=== PATIENT | female | born 1955 | race Asian ===

== ENCOUNTER → 2024-02-25 07:07 | Outpatient (REF) | payer OTHER, SELFPAY | LOC: RAD 07:07 | PROVIDERS: ATTENDING PHYSICIAN Internal Medicine Gastroenterology | DX: K59.04 Chronic idiopathic constipation (principal) | CPT/HCPCS: 74270 ==

== ENCOUNTER 2024-05-19 13:36 | Outpatient (RCR) | payer OTHER, SELFPAY | END 2024-05-19 23:59 | disposition home or self-care (01) | LOC: RPT 13:36 | PROVIDERS: ATTENDING PHYSICIAN Internal Medicine Gastroenterology | DX: K59.04 Chronic idiopathic constipation (principal); N81.89 Other female genital prolapse; R10.2 Pelvic and perineal pain; Z73.6 Limitation of activities due to disability; M62.81 Muscle weakness (generalized); R27.8 Other lack of coordination; M62.838 Other muscle spasm | CPT/HCPCS: 97014; 97112; 97140; 97163; 97530 ==

== ENCOUNTER 2024-06-01 13:45 | Outpatient (RCR) | payer OTHER, SELFPAY | END 2024-06-01 23:59 | disposition home or self-care (01) | LOC: RPT 13:45 | PROVIDERS: ATTENDING PHYSICIAN Internal Medicine Gastroenterology | DX: K59.04 Chronic idiopathic constipation (principal); N81.89 Other female genital prolapse; R10.2 Pelvic and perineal pain; Z73.6 Limitation of activities due to disability; M62.81 Muscle weakness (generalized); R27.8 Other lack of coordination; M62.838 Other muscle spasm | CPT/HCPCS: 97014; 97112; 97140; 97530 ==

== ENCOUNTER 2024-06-22 10:47 | Outpatient (RCR) | payer OTHER, SELFPAY | END 2024-06-22 12:47 | disposition home or self-care (01) | LOC: RPT 10:47 | PROVIDERS: ATTENDING PHYSICIAN Internal Medicine Gastroenterology | DX: K59.04 Chronic idiopathic constipation (principal); N81.89 Other female genital prolapse; R10.2 Pelvic and perineal pain; Z73.6 Limitation of activities due to disability; M62.81 Muscle weakness (generalized); R27.8 Other lack of coordination; M62.838 Other muscle spasm | CPT/HCPCS: 97530 ==

== ENCOUNTER → 2025-01-04 09:34 | Outpatient (REF) | payer OTHER, SELFPAY | LOC: RAD 09:34 | PROVIDERS: ATTENDING PHYSICIAN Surgery; FAMILY PHYSICIAN Family Medicine | DX: K59.09 Other constipation (principal) | CPT/HCPCS: 74019 ==

== ENCOUNTER → 2025-01-06 08:47 | Outpatient (REF) | payer OTHER, SELFPAY | LOC: RAD 08:47 | PROVIDERS: ATTENDING PHYSICIAN Surgery; FAMILY PHYSICIAN Family Medicine | DX: K59.00 Constipation, unspecified (principal) | CPT/HCPCS: 74019 ==

== ENCOUNTER 2025-02-20 06:19 | Day surgery (SDC) | payer OTHER, SELFPAY | END 2025-02-20 12:33 | disposition home or self-care (01) | LOC: GI 06:19 | PROVIDERS: ATTENDING PHYSICIAN Internal Medicine Gastroenterology | DX: Z12.11 Encounter for screening for malignant neoplasm of colon (principal); Z86.0100 Personal history of colon polyps, unspecified; K64.0 First degree hemorrhoids | CPT/HCPCS: G0105 ==

== ENCOUNTER 2025-04-18 05:56 | Day surgery (SDC) | payer OTHER, SELFPAY ==
[2025-04-04 08:56] LABS: Hematocrit 38.2 % (37.0-47.0); Hemoglobin 12.4 g/dL (12.0-16.0); Mean Corp Hgb Conc. 32.5 g/dL (33.0-37.0); Mean Corpuscular Volume 66.4 fL (81.0-99.0); Platelet Count 183 10^3/uL (130-400); Red Cell Dist. Width 15.7 % (11.5-14.5)
[2025-04-04 09:21] LABS: Blood Urea Nitrogen 12 mg/dl (7-17); Calcium 9.1 mg/dl (8.4-10.2); Carbon Dioxide 26 mmol/L (22-30); Chloride 108 mmol/L (98-107); Glucose 88 mg/dl (70-99); Potassium 4.9 mmol/L (3.5-5.1); Sodium 140 mmol/L (135-145); eGFR > 60.00
--- NOTE | 2025-04-04 12:48 | PTCARENOTE ---
Abnormal ECG on 04/04/25, Dr. Banks notified, requested preop cardiac clearance. Jaki Baca (urology office) notified.
[2025-04-04 13:55] VITALS: BMI 22.6
[2025-04-18] VITALS (38 sets, daily range): BP systolic 82–140; BP diastolic 38–70; BMI 22.6
[2025-04-18] MEDS: NORMOSOL-R/PLASMALYTE-A 1000 IV ×2 (06:34→15:30)
[2025-04-18 11:43] LABS: Hematocrit 33.1 % (37.0-47.0); Hemoglobin 10.9 g/dL (12.0-16.0); Mean Corp Hgb Conc. 32.9 g/dL (33.0-37.0); Mean Corpuscular Volume 66.1 fL (81.0-99.0); Platelet Count 159 10^3/uL (130-400); Red Cell Dist. Width 15.0 % (11.5-14.5)
[2025-04-18] MEDS: NEO-SYNEPHRINE 250 IV (11:49)
[2025-04-18] MEDS: DILAUDID 0.25 MG IV (12:00)
[2025-04-18 15:37] LABS: Hematocrit 32.1 % (37.0-47.0); Hemoglobin 10.6 g/dL (12.0-16.0); Mean Corp Hgb Conc. 33.0 g/dL (33.0-37.0); Mean Corpuscular Volume 65.6 fL (81.0-99.0); Platelet Count 167 10^3/uL (130-400); Red Cell Dist. Width 15.5 % (11.5-14.5)
[2025-04-18] MEDS: TORADOL 15 MG IV ×2 (16:37→22:01)
[2025-04-18] MEDS: NORMOSOL-R/PLASMALYTE-A IV (16:38)
--- NOTE | 2025-04-18 16:59 | PTCARENOTE ---
Transfer of patient care, received patient in good spirits, comfortable at present. See nursing assessment, vss, IV fluids per md order, Abdominal incisional sites C, D, and intact, no drainage. Sawyer cath with qs concentrated yellow urine.
Instructed pt to order a light dinner. Callbell within reach, bed in low position and siderails up x4.
[2025-04-18] MEDS: COLACE 100 MG PO (20:03)
[2025-04-18] MEDS: MYLICON 80 MG PO (21:11)
[2025-04-18] MEDS: NSS 250 IV (23:43)
--- NOTE | 2025-04-19 00:09 | W.PN.UPDATE ---
Update Note
Progress Note Update
RN reports patient BP 85/45 HR 66. Patient is chronically hypotensive. Patient denies dizziness, lightheadedness. prefers to sit up in the chair. no increase in vaginal bleeding per RN.
Bolus 250cc NSs. Maintain IV fluids BP post bolus remains 87/40 HR 66
BP updated BP 96/59, hr 66. will hold off on Midodrine now.
0300 RN asked COMPUTER METEOROLOGIST to see the patient. patient with the complain of feeling bloated and would like the fluids to be stopped.
Patient states since MN she hasn't passed gas and having 'gassy' pain across her abdomen. denies any nausea/vomiting, afebrile. Tolerating PO fluids. Patient received simethicone without much relief.
Abdomen soft, distended, +BS hyperactive 4 quadrant.
Advised patient to ambulate with the help of RN, warm fluids.
patient is refusing fluids at present.
labs to be done early.
likely post-op ileus Abdomen Xray, NPO
RN reports now, patient is belching and stated she is passing gas.
[2025-04-19] MEDS: NORMOSOL-R/PLASMALYTE-A 1000 IV (00:59)
[2025-04-19 01:15] VITALS: BP 87/40
[2025-04-19 01:40] VITALS: BP 96/59
[2025-04-19] MEDS: MYLICON 80 MG PO ×2 (03:19→12:02)
--- NOTE | 2025-04-19 03:47 | PTCARENOTE ---
patient c/o abdominal gas pain and right shoulder pain, mylicon given @ 2110
--- NOTE | 2025-04-19 03:49 | PTCARENOTE ---
BP 85/47, HR 66 @ 2300. Patient denies dizziness or lightheadedness. Scant pink vaginal discharge on pilo pad. Sawyer catheter draining adequate urine. Gaby Dhaliwal CARDIAC NURSE PRACTITIONER notified due to SBP less than 90. Order placed for 250 NSS bolus over 1 hour.
Bolus given. BP 87/40, HR 66 @ 0110 after bolus infused. Gaby Dhaliwal CARDIAC NURSE PRACTITIONER notified, Order placed for Midodrine 5 mg po now. BP taken prior to medication administration BP 96/49, HR 67. Nurse notified Gaby Dhaliwal CARDIAC NURSE PRACTITIONER of BP 96/49, medication not
administered and discontinued.
[2025-04-19] MEDS: TORADOL 15 MG IV (04:06)
[2025-04-19 04:10] VITALS: BP 90/46
[2025-04-19 05:21] LABS: Hematocrit 28.6 % (37.0-47.0); Hemoglobin 9.5 g/dL (12.0-16.0); Mean Corp Hgb Conc. 33.2 g/dL (33.0-37.0); Mean Corpuscular Volume 65.1 fL (81.0-99.0); Nucleated Red Blood Cells % 0 %; Platelet Count 163 10^3/uL (130-400); Red Cell Dist. Width 15.2 % (11.5-14.5)
[2025-04-19 05:25] LABS: Blood Urea Nitrogen 10 mg/dl (7-17); Carbon Dioxide 24 mmol/L (22-30); Chloride 108 mmol/L (98-107); Estimated Creatinine Clearance 64 ml/min; Potassium 4.1 mmol/L (3.5-5.1); Sodium 135 mmol/L (135-145)
--- NOTE | 2025-04-19 05:43 | PTCARENOTE ---
patient c/o gas pain in epigastric and right shoulder area @ 2315. Patient describes the pain as sharp in the abdomen, really hurting wants to get OOB to pass gas. patient standing at side of bed, nurse present. patient feels better OOB. Patient
assisted to chair and k-pad to right shoulder area.
--- NOTE | 2025-04-19 05:48 | PTCARENOTE ---
patient verbalized to nurse @ 0245 that she does not want anymore IVF, refusing, wants IVF stopped, IV capped @ 0300. Patient verbalized her belly feels more bloated after IV bolus. Continues to have discomfort across epigastric area and right
shoulder. additional pain medication offered, patient declined. Nurse notified Gaby Dhaliwal UTILITY SYSTEM REPAIRER @ 0253 regarding patient, Nurse asked Heracliofermin to see patient. At 0310 Hepcindy in room to assess patient. Mylicon given @ 0319.
--- NOTE | 2025-04-19 05:55 | PTCARENOTE ---
Toradol given as ordered @ 0406. IV remains capped. Patient remains OOB to chair per her decision as she says she is most comfortable in chair. BP 90/46, HR 68.
--- NOTE | 2025-04-19 05:58 | PTCARENOTE ---
Update on patient given to Gaby Dhaliwal STENCILER @ 0587 regarding BP 90/46, belching, no passing gas since about midnight and total urine output thus far for my shift 1410 ml. Sawyer catheter was d/c @ 0500 per physician order. X-ray of abdomen ordered by
Gaby, NPO status and encourage patient to resume IVF. Patient verbalized understanding of NPO status and x-ray ordered however continues to refuse IVF. Gaby notified.
--- NOTE | 2025-04-19 06:30 | PTCARENOTE ---
patient sleeping in bed
[2025-04-19 08:00] VITALS: BP 91/48
--- NOTE | 2025-04-19 08:48 | W.PN.GYN ---
Today's Communication / Plan
-
followup voiding trial, followup abdominal xr, advance diet, followup cardiology recommendations
Physician Note
-
69yoF POD1 s/p robotic hysterectomy, BSO, uterosacral ligament suspension and posterior colporrhaphy 04/18.
Internal medicine service was called overnight for evaluation of persistent asymptomatic hypotension with SBP in 80s. Patient was given fluid bolus and started on IVF. She was also made NPO due to dyspepsia and abdominal bloating.
Patient was evaluated on AM rounds. She pass flatus multiple times today and would like to start diet again. She has disconnected herself from IV at 0400 due to developing swelling in IV site in her arm. She reports continued bloating in her abdomen
but it has improved since overnight. She has been ambulating without difficulty and voided this AM. She notes minimal vaginal bleeding noted in her pad. She denies nausea, vomiting, chest pain, SOB, dizziness.
O :
GA: Well appearing female in NAD
HEENT: Normocephalic, EOMI
Abd: soft, nondistended, sutures intact with dermabond, incisional tenderness
: no bleeding noted in vaginal pad; PVR: 0mL
Ext: no lower extremity edema, minimal edema in RUE surrounding IV site, nontender
Vital Signs
Temp Pulse Resp BP Pulse Ox
98.4 F 68 18 90/46 95
04/19/25 04:10 04/19/25 04:10 04/19/25 04:10 04/19/25 04:10 04/18/25 15:45
Intake and Output
04/18/25 04/19/25 04/20/25
06:59 06:59 06:59
Intake Total 1999 / 1999
Output Total 3460 / 3460
Balance -1460 / -1460
Intake:
Oral fluids 500 / 500
IV fluids (Total) 1500 / 1500
Output:
Urine, Sawyer 3460 / 3460
Laboratory Results
04/19/25 04:23
04/19/25 04:23
A: 69yoF POD1 s/p robotic hysterectomy, BSO, uterosacral ligament suspension and posterior colporrhaphy 04/18. Currently stable. She passed voiding trial with PVR 0
Abdominal XR does not appear to be consistent with ileus and given patient's benign physical exam and ability to pass flatus.
Plan
- Continue to monitor vitals
- Resume home medications
- Monitor vaginal incision bleeding
- Ibuprofen/Tylenol prn and vaginal ice packs for mild/moderate pain and dilaudid prn for severe pain
- Continue SCDs and Lovenox for DVT prophylaxis
- Continue IV fluids
- Advance diet
2. Hypotension of unclear etiology. Possibly 2/2 anesthesia. Unlikely to be postop hematoma. Hgb has been lateral most recent 9.5. Patient's urine output is adequate.
- Continue to monitor vitals
- Continue IVF
- Consult cardiology for further evaluation of hypotension
--- NOTE | 2025-04-19 09:52 | PTCARENOTE ---
0800 am Patient out of bed, no complain of pain other than gas discomfort. Reports passing some gas and burping.
Patient voided [address] made aware, at bedside
Patient tolerating activity out of bed. Encourage ambulation.
Pt schedule for Rx this morning.
--- NOTE | 2025-04-19 10:07 | PTCARENOTE ---
Pt going to cardiac services by lindy for ECHO.
[2025-04-19] MEDS: TORADOL IV (10:09)
[2025-04-19] MEDS: NORMOSOL-R/PLASMALYTE-A IV ×3 (10:10→10:13)
[2025-04-19] MEDS: COLACE 100 MG PO (12:02)
--- NOTE | 2025-04-19 12:21 | CON.CAR ---
Addendum entered and electronically signed by Claude Valladares MD 04/19/25 15:43:
I saw and examined the patient.
The Emergency Technician's note was reviewed and I agree with the note.
Comment: Briefly, 69-year-old woman who underwent gynecologic surgery earlier this week to treat pelvic organ prolapse and uterine fibroids. Postoperatively patient was noted to be hypotensive for which cardiology is consulted.
Noted to have postop hypotension with blood pressures as low as 83/50 mmHg
By her report was not experiencing any symptoms with this, no lightheadedness dizziness or syncope.
Transthoracic echocardiogram with normal biventricular function and no high-grade valve disease
Suspect hypotension is related to blood loss/volume depletion as well as lingering effects of anesthesia
Reviewed with patient and at bedside that she should stay well-hydrated after she returns home
Would not recommend any further cardiac testing at this time, stable for discharge from my perspective
Original Note:
Consultation
Consultation Request
Date/Time Consultation Requested: 04/19/2025
Date/Time Consultation Performed: 04/19/2025
Requesting Provider: Dr. Goldberg
Performing Provider: Dr. Valladares
Reason for Consultation: Hypotension
Medical History
-
History of Present Illness:
Patient was admitted to the hospital following gynecologic surgery and cardiology is now consulted for hypotension. Patient was seen by Dr. Giordano in the office on 04/06/2025 for preoperative cardiovascular restratification prior to planned
gynecologic surgery. Patient reports constipation related to pelvic organ prolapse from uterine fibroids. Patient was evaluated by Dr. Goldberg as an outpatient and recommended surgery as outlined above. On preadmission testing patient was noted
to have RBBB and sinus bradycardia prompting cardiology referral. The RBBB did not require any additional workup. During cardiovascular office evaluation there was possible murmur and patient was recommended eventual echo. Patient was also found
to have B/L soft carotid bruits and was recommended eventual outpatient carotid ultrasound. Patient was told to proceed with surgery without any additional cardiac testing. Hgb prior to surgery was 12.4 and is 9.5 on 04/19/2025. Patient has
received IVF's for hypotension so some of this may be dilutional as well. Cardiology is consulted for ongoing hypotension. Patient denies feeling lightheaded or dizzy. Patient herself asked that IVF's be stopped as she otherwise felt well and was
actually beginning to feel bloated and swollen from the IVF's. In the cardiology office back on 04/06/2025 BP was 118/72 and there is no known h/o HTN.
PMH:
Carotid bruit
cRBBB
Past Medical History
Past Medical History: Other (In HPI)
Past Surgical History: Gynecological (robotic hysterectomy, BSO, uterosacral ligament suspension and posterior colporrhaphy 04/18/25)
Social History
Tobacco: Non-Smoker
Alcohol: Occasional
Drug: None
Personal:
Living: With Family
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
Family History
Family History: Diabetes
Allergies / Home Medications
Allergy/AdvReac Type Severity Reaction Status Date / Time
latex Allergy sob chest Verified 04/18/25 06:12
tightness
�Medication �Instructions �Recorded �Confirmed �Type
Colon Health Probiotic 1 dose PO DAILY 04/11/25 04/18/25 History
ylpdeaa-xjfztholz-cwly 333 mg-133 1 tab PO DAILY 04/11/25 04/18/25 History
mg-5 mg tablet
ibandronate 150 mg tablet 150 mg PO QMONTH 04/11/25 04/18/25 History
psyllium 1 tsp PO DAILY 04/11/25 04/18/25 History
sennosides 12 mg capsule 12 mg PO HS PRN constipation 04/11/25 04/18/25 History
vitamin D3 125 mcg (5,000 1 cap PO DAILY 04/11/25 04/18/25 History
unit)-vitamin K2 90 mcg capsule
Review of Systems
-
History Source: Patient and Family ( sitting bedside asking questions and helping with HPI)
All other systems: Negative unless noted
Physical Exam
Vital Signs
Temp Pulse Resp BP Pulse Ox
98.2 F 73 18 91/48 95
04/19/25 08:00 04/19/25 08:00 04/19/25 08:00 04/19/25 08:00 04/18/25 15:45
GEN: NAD. AAOx3
HEENT: EOMI, MMM
LUNGS: RA. CTA B/L without wheeze
CV: Reg, S1/S2, no murmur
ABD: soft, BS+, NT, ND
EXT: No clubbing, cyanosis, lesions or edema B/L
NEURO: Gross non-focal
SKIN: Warm, dry and pink. No rash
Lab Results
04/19/25 04:23
04/19/25 04:23
Impression / Plan
-
PCP: Dr. Pulido
Card: Dr. SAM Giordano
Impression:
Admitted after robotic hysterectomy, BSO, uterosacral ligament suspension and posterior colporrhaphy 04/18/25
s/p robotic hysterectomy, BSO, uterosacral ligament suspension and posterior colporrhaphy for uterine fibroids, pelvic organ prolapse and constipation 04/18/25
Hypotension
Anemia
Carotid bruit
cRBBB
Echo 04/19/2025: EF 60 to 65%, no WMA, normal RV size and function, trivial pericardial effusion
Plan:
-Patient was admitted to the hospital following gynecologic surgery and cardiology is now consulted for hypotension. Patient was seen by Dr. Giordano in the office on 04/06/2025 for preoperative cardiovascular restratification prior to planned
gynecologic surgery. Patient reports constipation related to pelvic organ prolapse from uterine fibroids. Patient was evaluated by Dr. Goldberg as an outpatient and recommended surgery as outlined above. On preadmission testing patient was noted
to have RBBB and sinus bradycardia prompting cardiology referral. The RBBB did not require any additional workup. During cardiovascular office evaluation there was possible murmur and patient was recommended eventual echo. Patient was also found
to have B/L soft carotid bruits and was recommended eventual outpatient carotid ultrasound. Patient was told to proceed with surgery without any additional cardiac testing. Hgb prior to surgery was 12.4 and is 9.5 on 04/19/2025. Patient has
received IVF's for hypotension so some of this may be dilutional as well. Cardiology is consulted for ongoing hypotension. Patient denies feeling lightheaded or dizzy. Patient herself asked that IVF's be stopped as she otherwise felt well and was
actually beginning to feel bloated and swollen from the IVF's. In the cardiology office back on 04/06/2025 BP was 118/72 and there is no known h/o HTN.
-Preoperative ECG reviewed by me shows SR with RBBB there was no repeat ECG following surgery.
-VS reviewed by me and patient with BP ranging from 82/52 up to 127/65 today. Patient denies feeling lightheaded or dizzy.
-MAR reviewed by me and there was an order for midodrine, but I checked with nursing and this dose was not given. Midodrine dose appears to be canceled.
-Urgent echo ordered by general surgery service. Echocardiogram performed and the report was reviewed by me and then summarized above. The echocardiogram is normal with overall preserved EF and no significant valve disease, I reviewed this with the
patient and her bedside as well.
-Patient with postoperative hypotension that is likely multifactorial, would not start midodrine in this instance as patient is completely asymptomatic.
-No obvious cardiac source of hypotension and recommend ongoing increases in p.o. intake. Patient is stable for discharge from a cardiac perspective. Patient can return to the cardiology office as needed, no specific follow-up recommended at this
time.
[2025-04-19 12:25] VITALS: BP 97/56
[2025-04-19] MEDS: ROXICODONE 2.5 MG PO (13:51)
--- NOTE | 2025-04-19 14:06 | PTCARENOTE ---
CUFF SETTER LOCKSTITCH from cardiology at the beside talking about results from the echo done this morning.
[2025-04-19 15:06] VITALS: BP 95/46
--- NOTE | 2025-04-19 16:04 | PTCARENOTE ---
last BM 04/18
--- NOTE | 2025-04-19 16:06 | PTCARENOTE ---
Pt D/C home per Gena MENCHACA for dr Brooks. All d/c instruction reviewed with pt at bed side.Pt Cleared by cardiology for D/C home. Prescription send to Pharmacy.
== END 2025-04-19 16:12 | disposition home or self-care (01) ==
LOC: SDS 05:56
PROVIDERS: Student in an Organized Health Care Education/Training Program; ATTENDING PHYSICIAN Obstetrics & Gynecology; CONSULT PHYSICIAN Internal Medicine Cardiovascular Disease; FAMILY PHYSICIAN Family Medicine
DX: D25.9 Leiomyoma of uterus, unspecified (principal); N81.4 Uterovaginal prolapse, unspecified; K59.09 Other constipation; I95.81 Postprocedural hypotension; D64.9 Anemia, unspecified; N84.1 Polyp of cervix uteri
CPT/HCPCS: 57425; 58571; 57260; 36415; 74018; 80048; 80051; 82565; 84520; 85025; 85027; 86850; 86900; 86901; 88305; 93005; 93306; C1713; Q9957